=== PATIENT | male | born 1950 | race Caucasian/White ===

== ENCOUNTER → 2017-10-30 | Outpatient (CLI) | payer MEDICARE ==
[~2017-10-30] MED LIST: BARIUM SUSPENSION 2.1% (VANILLA SILQ) 450 ML PO ONE; CATHETER FLUSH 10 ML SYR IV PRN; IOHEXOL 350 MG/ML 100 ML (OMNIPAQUE 350) VIAL IV ONE; NS 250 ML (IVPB) BAG IV ONE
--- NOTE | 2017-10-30 12:31 | Diagnostic Imaging Report ---
PROCEDURE: CT abdomen and pelvis with contrast. TECHNIQUE: Multiple contiguous axial images were obtained through the abdomen and pelvis after administration of intravenous contrast. INDICATION: Prostate cancer. FINDINGS: The heart size is normal. The lung bases are clear. The liver is normal in size without focal lesions. Gallbladder is unremarkable. There is no biliary ductal dilatation. Spleen is normal. Pancreas and adrenal glands are unremarkable. There is a cyst in the left kidney. Right kidney is normal in appearance. There is no evidence of obstructive uropathy. There is moderate atherosclerotic calcification of aorta which is nonaneurysmal. Bowel gas pattern is nonspecific. Bladder is normal. There is no pelvic mass or adenopathy. There are mild degenerative changes in the spine. IMPRESSION: Left renal cyst. Degenerative changes in the spine. No other acute abnormality in the abdomen or pelvis. Dictated by: Dictated on workstation # [id number]
--- NOTE | 2017-10-30 16:47 | Diagnostic Imaging Report ---
INDICATION: New diagnosis of prostate cancer. COMPARISON: CT abdomen and pelvis of 10/30/2017. TECHNIQUE: Anterior and posterior scintigraphic images of the whole body were obtained after the intravenous injection of 26.6 mCi of Tc-99m MDP. FINDINGS: Asymmetric focus of radiotracer activity in the lower left neck is most compatible with facet osteoarthritis. No additional abnormal foci of radiotracer activity to indicate osseous metastases. Normal activity within the kidneys and urinary bladder is identified. IMPRESSION: No blastic osseous metastases. Dictated by: Dictated on workstation # [id number]
== END ==
LOC: CARD 10:40
PROVIDERS: ATTEND Urology
DX: C61 Malignant neoplasm of prostate (principal); N28.1 Cyst of kidney, acquired
CPT/HCPCS: 74177; 78306

== ENCOUNTER 2022-10-18 10:28 | Outpatient (RCR) | payer MEDICARE | END 2022-10-27 | disposition home or self-care (01) | LOC: ONC 10:28 | PROVIDERS: ATTEND Internal Medicine Hematology & Oncology | DX: C61 Malignant neoplasm of prostate (principal) | CPT/HCPCS: 84153 ==